=== PATIENT | female | born 1980 | race Caucasian/White ===

== ENCOUNTER 2020-03-16 10:57 | Emergency (ER) | payer OTHER, SELFPAY ==
[2020-03-16 11:02] VITALS: BP 129/77; PULSE 89; RESP 16; TEMP 36.5; O2SAT 99
--- NOTE | 2020-03-16 11:38 | ED.DENTAL ---
HPI - Dental/Oral General Chief complaint: Dental/Oral <AVTAR Herman Last Filed: 03/16/20 11:49> Stated complaint: TEETH PROBLEMS <AVTAR Herman Last Filed: 03/16/20 11:49> Time Seen by Provider: 03/16/20 11:08 <AVTAR Herman Last Filed: 03/16/20 11:49> Source: patient <AVTAR Herman Last Filed: 03/16/20 11:49> Mode of arrival: ambulatory <AVTAR Herman Last Filed: 03/16/20 11:49> Limitations: no limitations <AVTAR Herman Last Filed: 03/16/20 11:49> History of Present Illness HPI Narrative: This is a 39 year old female that presents to the ER for toothache since last night. Reports she has several bad teeth. Reports she was seeing a dentist for this and has had a couple pulled and then since coronavirus she has not been able to see the dentist again. Denies fever, erythema or edema. <AVTAR Herman Last Filed: 03/16/20 11:49> MD Complaint: tooth pain <AVTAR Herman Last Filed: 03/16/20 11:49> Location: Tooth # (9) <AVTAR Herman Last Filed: 03/16/20 11:49> Related Data Allergies/adverse reactions: Allergies Allergy/AdvReac Type Severity Reaction Status Date / Time aspirin Allergy Mild TACHYCARDIA Verified 03/16/20 11:44 acetaminophen AdvReac Unknown Unknown Verified 03/16/20 11:44 codeine AdvReac Unknown Rash Verified 03/16/20 11:44 <AVTAR Herman Last Filed: 03/16/20 11:49> Review of Systems Review of Systems: Narrative: CONSTITUTIONAL: Denies fever ENT: Reports dentalgia <AVTAR Herman Last Filed: 03/16/20 11:49> All systems reviewed & are unremarkable except as noted in HPI and below <Iram Ortiz PA-C - Last Filed: 03/16/20 11:49> [facility] Past Medical History Medical History: Medical History (Updated 03/16/20 @ 11:46 by Iram Ortiz PA-C) History of anxiety <Iram Ortiz PA-C - Last Filed: 03/16/20 11:49> Surgical History Surgical History: Surgical History (Updated 03/16/20 @ 11:40 by Iram Ortiz PA-C) History of gastric bypass <Iram Ortiz PA-C - Last Filed: 03/16/20 11:49> Social History Social History: Social History (Updated 03/16/20 @ 11:40 by Iram Ortiz PA-C) Smoking status: Current every day smoker <Iram Ortiz PA-C - Last Filed: 03/16/20 11:49> Exam Narrative: Exam Narrative: GENERAL: Well-appearing, well-nourished, and in no acute distress. HEAD: Normocephalic, atraumatic. EYES: EOMI. ENT: Mucous membranes moist. Oropharynx without tonsillar hypertrophy, exudate or other lesions. Several rotten teeth. Poor dentition. Tooth #9 tender to palpation without surrounding edema or erythema to suggest abscess NECK: Supple. No adenopathy or masses. CHEST: Airway patent EXTREMITIES: Normal range of motion. No edema. SKIN: Warm, dry, no rash. NEURO: No focal deficits. Alert and oriented x3. PSYCH: Normal mood and affect <Iram Ortiz PA-C - Last Filed: 03/16/20 11:49> Course Vital Signs Vital signs: Vital Signs Temperature 36.5 C 03/16/20 11:02 Pulse Rate 89 03/16/20 11:02 Respiratory Rate 16 03/16/20 11:02 Blood Pressure 129/77 03/16/20 11:02 Pulse Oximetry 99 03/16/20 11:02 Temperature 36.5 C 03/16/20 11:02 Pulse Rate 89 03/16/20 11:02 Respiratory Rate 16 03/16/20 11:02 Blood Pressure 129/77 03/16/20 11:02 Pulse Oximetry 99 03/16/20 11:02 <Iram Ortiz PA-C - Last Filed: 03/16/20 11:49> Vital Signs Temperature 36.5 C 03/16/20 11:02 Pulse Rate 89 03/16/20 11:02 Respiratory Rate 16 03/16/20 11:02 Blood Pressure 129/77 03/16/20 11:02 Pulse Oximetry 99 03/16/20 11:02 Temperature 36.5 C 03/16/20 11:02 Pulse Rate 89 03/16/20 11:02 Respiratory Rate 16 03/16/20 11:02 Blood Pressure 129/77 03/16/20 11:02 Pulse Oximetry 99 03/16/20 11:02 <Shirley Chaparro MD - Last Pablo
[2020-03-16] MEDS: AMOXICILLIN/CLAVULANATE K 875-125 MG TAB 1 TABLET PO (11:44)
--- NOTE | 2020-03-16 11:45 | PC.NURSE ---
Patient requesting pain medications, SOWMYA coronado aware
== END 2020-03-16 12:02 | disposition home or self-care (01) ==
PROVIDERS: Emergency Provider Emergency Medicine
DX: K08.89 Other specified disorders of teeth and supporting structures (principal); F17.200 Nicotine dependence, unspecified, uncomplicated
CPT/HCPCS: 99283; A9270

== ENCOUNTER 2021-08-11 18:00 | Emergency (ER) | payer OTHER, SELFPAY ==
[2021-08-11 18:14] VITALS: BP 145/81; PULSE 100; RESP 16; TEMP 36.1; O2SAT 100
[2021-08-11] MEDS: KETOROLAC 30 MG/ML VIAL (*BKC) IM (20:06)
[2021-08-11 20:11] VITALS: BP 126/71; PULSE 87; RESP 18; TEMP 36.8; O2SAT 100
--- NOTE | 2021-08-11 20:13 | ED.GENADULT ---
HPI - General Adult General Chief complaint: Unspecified Stated complaint: bad teeth & parasite living inside of me Time Seen by Provider: 08/11/21 19:26 Source: patient Mode of arrival: ambulatory Limitations: no limitations History of Present Illness HPI narrative: Patient presents with chief complaint of bad teeth with pain that has been worsening over the past 2 days. Patient reports she was started on augmentin 2 days ago- 3 doses. She reports she still has pain. Patient reports ibuprofen 800mg given made her stomach upset. Patient denies any fever, chills, nausea, vomiting, diarrhea. Patient states she is trying to get into a dentist. Related Data Home Medications Medication Instructions Recorded Confirmed amoxicillin-pot clavulanate tablet 08/11/21 Allergies Allergy/AdvReac Type Severity Reaction Status Date / Time aspirin Allergy Mild TACHYCARDIA Verified 08/11/21 20:08 acetaminophen AdvReac Unknown Unknown Verified 08/11/21 20:08 codeine AdvReac Unknown Rash Verified 08/11/21 20:08 Review of Systems Review of Systems: CONSTITUTIONAL: Denies fever, chills, or sweats. EYES: Denies visual changes, redness, or discharge. ENT: Reports dentalgia Denies rhinorrhea, congestion, sore throat, or otalgia. CARDIOVASCULAR: Denies chest pain, palpitations, or edema. RESPIRATORY: Denies cough or dyspnea. GASTROINTESTINAL: Denies abdominal pain, nausea, vomiting, or diarrhea. GENITOURINARY: Denies dysuria or hematuria. SKIN: Denies rash or itching. MUSCULOSKELETAL: Denies back pain, myalgia, or joint pain NEUROLOGIC: Denies headache, numbness, dizziness, or weakness. PSYCHIATRIC: Denies anxiety or depression. PMFSH Past Medical History Medical History (Updated 08/11/21 @ 20:21 by Sabra Mcginnis PA-C) History of anxiety Surgical History Surgical History (Updated 03/16/20 @ 11:40 by Iram Ortiz PA-C) History of gastric bypass Social History Social History (Updated 03/16/20 @ 11:40 by Iram Ortiz PA-C) Smoking status: Current every day smoker Exam Narrative: GENERAL: Well-appearing, well-nourished. HEAD: Normocephalic, atraumatic. EYES: PERRLA and EOMI. ENT: Nares clear, no rhinorrhea or epistaxis. Mucous membranes moist. Oropharynx without tonsillar hypertrophy exudate or other lesions. Bilateral TMs pearly dao nonbulging. Dentition is a mouth full of broken and missing teeth throughout. No abscesses seen. CHEST: Clear to auscultation. No respiratory distress. No wheezes rales or rhonchi HEART: Regular rate and rhythm. Normal peripheral pulses. EXTREMITIES: No acute changes in ROM. No edema. SKIN:Picked areas all over skin. Warm, dry, no rash. NEURO: No focal deficits. Alert and oriented x3. PSYCH: Normal mood and affect. Course Vital Signs Vital signs: Vital Signs Temperature 97 F L 08/11/21 18:14 Pulse Rate 100 08/11/21 18:14 Respiratory Rate 16 08/11/21 18:14 Blood Pressure 145/81 H 08/11/21 18:14 Pulse Oximetry 100 08/11/21 18:14 Temperature 98.2 F 08/11/21 20:11 Pulse Rate 87 08/11/21 20:11 Respiratory Rate 18 08/11/21 20:11 Blood Pressure 126/71 08/11/21 20:11 Pulse Oximetry 100 08/11/21 20:11 Medical Decision Making MDM Narrative Medical decision making narrative: Patient appears to have some substance abuse and mental health concerns. No SI or HI. But I do not feel that narcotic pain control would be appropriate. Patient instructed on the need for follow up. Patient has been started on augmentin by her PCP and has only taken 3 doses so not failure to treat. Patient instructed to follow up with her dentist. RTER instructions given. No drainable abscesses noted. Patient vitals are stable. She is afebrile. Vital Signs Vital Signs: Vital Signs Temperature 97 F L 08/11/21 18:14 Pulse Rate 100 08/11/21 18:14 Respiratory Rate 16 08/11/21 18:14 Blood Pressure 145/81 H 08/11/21 18:14 Pulse Oximetry 100 08/11/21 18:14
[2021-08-11 21:00] VITALS: BP 126/71; PULSE 87; RESP 18; O2SAT 100
== END 2021-08-11 21:00 | disposition home or self-care (01) ==
LOC: ANHED 20:40
PROVIDERS: Emergency Provider Emergency Medicine; PCP Family Medicine
DX: K02.9 Dental caries, unspecified (principal); Z98.84 Bariatric surgery status
CPT/HCPCS: 96372; 99283; J1885